=== PATIENT | female | born 1985 | race Caucasian/White ===

== ENCOUNTER → 2017-12-12 | Outpatient (CLI) | payer OTHER ==
--- NOTE | 2017-12-12 22:27 | MR ---
EXAMINATION TYPE: MR lumbar spine wo con DATE OF EXAM: 12/12/2017 COMPARISON: NONE HISTORY: 32-year-old female with low back pain with numbness x3 months TECHNIQUE: Multiplanar, multisequence images of the lumbar spine were acquired. Findings: Vertebral body heights are preserved and alignment is maintained. No suspicious bone marrow replacement. Conus medullaris is normal. There is degenerative disc disease at L5-S1 characterized by desiccated and bulging disc. Additional posterior annular fissure is present. Minimal disc bulging at L4-L5. Mild early facet degenerative change lower lumbar spine. From T12 through L4 levels, no spinal canal or foraminal stenosis. At L4-L5, minimal bulging disc and mild facet degenerative change. No significant canal or foraminal stenosis. At L5-S1, bulging disc with a small posterior annular fissure and mild facet degenerative change. No significant canal or foraminal stenosis. No prevertebral or paravertebral soft tissue abnormality seen. IMPRESSION: 1. Degenerative disc disease at L5-S1 with desiccated and bulging disc and a small posterior annular fissure. 2. Mild facet arthropathy lower lumbar spine. 3. No spinal canal or neuroforaminal stenosis.
== END | disposition home or self-care (01) ==
LOC: RADMRIMAIN 15:32
PROVIDERS: ATTEND Family Medicine
DX: M51.17 Intervertebral disc disorders with radiculopathy, lumbosacral region (principal); M46.96 Unspecified inflammatory spondylopathy, lumbar region
CPT/HCPCS: 72148

== ENCOUNTER → 2018-01-17 | Outpatient (CLI) | payer OTHER ==
[2018-01-17 15:41] LABS: Basophils % (A) 0 %; Eosinophils # (A) 0.2 k/uL (0-0.7); Eosinophils % (A) 4 %; HCT 37.1 % (34.0-46.0); HGB 12.7 gm/dL (11.4-16.0); Lymphocytes # (A) 1.8 k/uL (1.0-4.8); Lymphocytes % (A) 34 %; MCH 28.6 pg (25.0-35.0); MCHC 34.3 g/dL (31.0-37.0); MCV 83.3 fL (80.0-100.0); Mean Platelet Volume 7.1; Monocytes # (A) 0.3 k/uL (0-1.0); Monocytes % (A) 6 %; Neutrophils # (A) 2.9 k/uL (1.3-7.7); Neutrophils % (A) 55 %; Platelet Count 326 k/uL (150-450); RBC 4.45 m/uL (3.80-5.40); RDW 12.4 % (11.5-15.5); WBC 5.4 k/uL (3.8-10.6)
== END | disposition home or self-care (01) ==
LOC: LABPAT 15:21
PROVIDERS: ATTEND Obstetrics & Gynecology
DX: Z01.812 Encounter for preprocedural laboratory examination (principal)
CPT/HCPCS: 36415; 85025

== ENCOUNTER 2018-01-25 06:09 | Day surgery (SDC) | payer OTHER ==
[2018-01-22 11:49] VITALS: BMI 24.7
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
[~2018-01-25 06:09] MED LIST: DEXAMETHASONE SOD PHOSPHATE 10 MG/ML 1 ML VIAL IV ONE; LACTATED RINGERS 1,000 ML IV SCH; MIDAZOLAM 2 MG/2 ML VIAL IV PRN; MORPHINE SULFATE 4 MG/ML SYRINGE IV PRN; ONDANSETRON ODT 4 MG TAB PO ONE; Pre Op ABX Message 1 EACH MISC MISCELLANE ONE
[2018-01-25 06:24] VITALS: RESP 16
[2018-01-25] MEDS ORDERED: LIDOCAINE 1% 20 ML VIAL (10MG/ML) FOR IV START INTRADERMA ONE (06:34)
[2018-01-25] MEDS ORDERED: KETOROLAC 30 MG/ML 1 ML VIAL ONE (07:20)
[2018-01-25] MEDS ORDERED: PROPOFOL 10 MG/ML 20 ML VIAL IV ONE (07:20)
[2018-01-25] MEDS ORDERED: fentaNYL (PF) 50 MCG/ML 2 ML AMP ONE (07:20)
[2018-01-25] MEDS ORDERED: LIDOCAINE 1% INJ 10MG/ML (20 ML MDV) ONE (07:20)
[2018-01-25] MEDS ORDERED: SUCCINYLCHOLINE CHLORIDE 100 MG/5 ML SYR IV ONE (07:20)
[2018-01-25] MEDS ORDERED: MIDAZOLAM 2 MG/2 ML VIAL ONE (07:20)
[2018-01-25] MEDS ORDERED: BUPIVACAINE (PF) 0.5% 30 ML VIAL SQ ONE ×2 (07:42→07:50)
--- NOTE | 2018-01-25 08:05 | P.OP ---
Date of Procedure: 01/25/18 Preoperative Diagnosis: Multi parity desires permanent sterilization Postoperative Diagnosis: Same Procedure(s) Performed: Laparoscopic bilateral fallopian tube cauterization Anesthesia: SAMMYA Surgeon: Dex Hammond Estimated Blood Loss (ml): 10 Urine output (ml): 50 Pathology: none sent Condition: stable Disposition: PACU Indications for Procedure: Please see dictated H&P for intimate details of this patient's admission. Brief summary this pleasant 32-year-old multigravida patient is requesting tubal cauterization for permanent sterilization. Patient I discussed the fact this procedure is permanent, however does have a failure rate of approximately 5 -10 per thousand procedures done. She understands if she does become she has a 50% chance of a tubal or an ectopic . Patient also understands laparoscopic surgery has risks including risks of infection, bleeding, possible injury bowel, bladder, vessels, and/or other organs. All the patient's questions are answered and a written consent is obtained. Operative Findings: This patient had a normal-appearing pelvis. Description of Procedure: This patient is taken to the operating room where she is laid in the supine position and subsequently undergoes general endotracheal anesthesia without incident. With an adequate level of anesthesia she's placed in the dorsal lithotomy position. She has a vaginal perineal abdominal prep and drape. First go down below and placed a speculum into the vagina visualizing the cervix. Allis clamp was placed on the anterior lip of the cervix and a small acorn cannula is gently placed into the endocervix. This is attached to the Allis clamp. The bladder is then drained for 50 mL of clear urine in the catheter is left in place. I then changed gloves and go above. Make a 1 cm infraumbilical incision. Through this incision a 10 mm bladed lists optical trochars placed under direct visualization. With peritoneal placement confirmed pneumoperitoneum was then created to 12 mm of carbon dioxide gas. With this done a 5 mm incision made 2 fingerbreadths above the symphysis pubis. Through this a 5 mm bladed lists trochars placed under direct visualization. This done I then used a blunt probe to visualize uterus tubes and ovaries and all appears normal. Using bipolar cautery then grasped the left fallopian tube approximately 4 cm from its cornual insertion a 2-3 cm segment of tube is completely cauterized as demarcated by the volt meter similar technique in the right side with similar results. With this done final inspection of the abdomen and pelvis is done all appears to be hemostatic. The lower trochars removed and good hemostasis is noted. The peritoneum is reduced and the upper trochars then removed. Incisions are then closed using a 4-0 Vicryl interrupted fashion. Steri-Strips and sterile dressing applied. Half percent Marcaine is injected for postoperative pain control. I then good on below remove the Allis clamp acorn cannula and catheter. All counts are correct 3. There are no complications. Patient is awakened from anesthesia and taken recovery room satisfactory condition.
[2018-01-25 08:18] VITALS: TEMP 97.1
[2018-01-25] MEDS ORDERED: Acetaminophen-Codeine 300-30mg TAB PO ONE (08:57)
[2018-01-25 09:36] VITALS: BP 118/77; PULSE 91
== END 2018-01-25 09:57 | disposition home or self-care (01) ==
LOC: OR 06:09
PROVIDERS: ATTEND Obstetrics & Gynecology
DX: Z30.2 Encounter for sterilization (principal); Z87.891 Personal history of nicotine dependence; Z86.001 Personal history of in-situ neoplasm of cervix uteri; Z79.3 Long term (current) use of hormonal contraceptives; Z79.899 Other long term (current) drug therapy; Z88.2 Allergy status to sulfonamides
CPT/HCPCS: 81025; 58670; J2250; J1100; J2001; J3010; J1885; J0330; J2704

== ENCOUNTER → 2018-07-19 | Outpatient (CLI) | payer OTHER ==
[2018-07-18 14:10] VITALS: BMI 25.0
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
== END ==
LOC: PNWHC3 12:03
PROVIDERS: ATTEND Specialist
DX: M47.26 Other spondylosis with radiculopathy, lumbar region (principal); M46.96 Unspecified inflammatory spondylopathy, lumbar region; Z87.891 Personal history of nicotine dependence; Z79.899 Other long term (current) drug therapy; Z88.2 Allergy status to sulfonamides
CPT/HCPCS: 99211

== ENCOUNTER 2018-08-16 14:27 | Emergency (ER) | payer OTHER ==
--- NOTE | 2018-08-16 15:27 | ED ---
General Adult HPI - General Stated complaint: needle stick Time Seen by Provider: 08/16/18 15:10 Source: RN notes reviewed - History of Present Illness Initial comments: Patient's a 33-year-old female presenting to the emergency room today with a chief complaint of a needlestick injury. She does work in the OR. She states a doctor was handing a needle back to her. She went to set it down and it accidentally caught her right thumb. It did bleed. She did clean the area. Patient states her immunizations are up-to-date. She denies any other complaints or symptoms. Patient denies any recent fever, chills, shortness of breath, chest pain, numbness or tingling, headaches or visual changes, or any other complaints. - Related Data Home Medications Medication Instructions Recorded Confirmed ALPRAZolam [Xanax] 0.25 mg PO DAILY PRN 01/22/18 08/01/18 Citalopram Hydrobromide 20 mg PO HS 01/22/18 08/01/18 [Citalopram HBr] Allergies Allergy/AdvReac Type Severity Reaction Status Date / Time sulfamethoxazole Allergy Anaphylaxis Verified 07/30/18 14:55 [From Bactrim] trimethoprim [From Bactrim] Allergy Anaphylaxis Verified 07/30/18 14:55 Review of Systems ROS Statement: Those systems with pertinent positive or pertinent negative responses have been documented in the HPI. ROS Other: All systems not noted in ROS Statement are negative. Past Medical History Past Medical History: No Reported History Additional Past Medical History / Comment(s): . History of Any Multi-Drug Resistant Organisms: None Reported Past Surgical History: Tubal Ligation Additional Past Surgical History / Comment(s): LEEP Past Anesthesia/Blood Transfusion Reactions: No Reported Reaction Past Psychological History: No Psychological Hx Reported Smoking Status: Former smoker Past Alcohol Use History: Occasional Additional Past Alcohol Use History / Comment(s): quit smoking 4 yrs ago, smoked for 6 yrs, < 1 PPD Past Drug Use History: None Reported - Past Family History Mother Family Medical History: No Reported History General Exam - General Exam Comments Initial Comments: General: The patient is awake and alert, in no distress, and does not appear acutely ill. Eye: There is normal conjunctiva bilaterally. No signs of icterus. Neck: The neck is supple Musculoskeletal: Normal ROM, no tenderness. Strength 5/5. Sensation intact. Pulses equal bilaterally 2+. Neurological: A&O x 3. CN II-XII intact, There are no obvious motor or sensory deficits. Coordination appears grossly intact. Speech is normal. Skin: Small puncture at the DIP joint of the right thumb. No bleeding. No redness or erythema. Psychiatric: Cooperative, appropriate mood & affect, normal judgment. Medical Decision Making - Medical Decision Making Rapid HIV test was performed on source patient which is negative. Patient's blood was drawn here in the emergency room and she is advised follow-up with employee health. Disposition Clinical Impression: Needle stick injury Disposition: HOME SELF-CARE Condition: Good Instructions: Needle Stick Injuries (ED) Additional Instructions: Please continue to follow-up with employee health. Please return here to the emergency room symptoms increase or worsen or for any other concerns. Is patient prescribed a controlled substance at d/c from ED?: No Referrals: Jonathan Molina MD [Primary Care Provider] - 1-2 days Time of Disposition: 15:27
== END 2018-08-16 15:47 | disposition home or self-care (01) ==
LOC: EC 14:27
DX: S61.031A Puncture wound without foreign body of right thumb without damage to nail, initial encounter (principal); Z87.891 Personal history of nicotine dependence; Z88.2 Allergy status to sulfonamides; Z79.899 Other long term (current) drug therapy; W46.1XXA Contact with contaminated hypodermic needle, initial encounter; Y93.89 Activity, other specified; Y92.234 Operating room of hospital as the place of occurrence of the external cause; Y99.0 Civilian activity done for income or pay
CPT/HCPCS: 99282

== ENCOUNTER 2018-08-21 07:14 | Day surgery (SDC) | payer OTHER ==
[2018-08-17 15:35] VITALS: BMI 25.0
[~2018-08-21 07:14] MED LIST changes: -DEXAMETHASONE SOD PHOSPHATE 10 MG/ML 1 ML VIAL IV ONE; -LACTATED RINGERS 1,000 ML IV SCH; -MIDAZOLAM 2 MG/2 ML VIAL IV PRN; -MORPHINE SULFATE 4 MG/ML SYRINGE IV PRN; -ONDANSETRON ODT 4 MG TAB PO ONE; -Pre Op ABX Message 1 EACH MISC MISCELLANE ONE; +SODIUM CHLORIDE 0.9% 500 ML 500 ML IV SCH
[2018-08-21 07:35] VITALS: TEMP 97.8
[2018-08-21] MEDS ORDERED: LIDOCAINE 1% 20 ML VIAL (10MG/ML) FOR IV START INTRADERMA ONE (07:40)
[2018-08-21] MEDS ORDERED: LACTATED RINGERS 1,000 ML IV ONE (07:40)
--- NOTE | 2018-08-21 08:48 | P.PCN ---
Date of Procedure: 08/21/18 Procedure(s) Performed: PREOPERATIVE DIAGNOSIS: 1- Lumbar radiculopathy. 2-Lumbar spondylosis with Facet arthropathy without myelopathy POSTOPERATIVE DIAGNOSIS: 1-Lumber radiculopathy. 2-Lumbar spondylosis with Facet arthropathy without myelopathy PROCEDURE 1. Lumbar epidural steroid injection under fluoroscopic guidance at the L5-S1 level. 2. Lumbar epidurogram. ANESTHESIA: Local with 1% lidocaine 3 ml and , moderate sedation with intravenous Versed 2 mg ,and fentanyle 50 Mcg EBL: Minimal PROCEDURE INDICATION: The patient with low back pain and radiculitis symptoms unresponsive to conservative treatment. Fluoroscopy was used to optimize visualization of the needle placement and to maximize safety. PROCEDURE DESCRIPTION / TECHNIQUE: The patient was seen and identified in the preoperative area. Risks, benefits , complications including but not limited to infections ,bleeding ,allergic reaction to the medications ,nerve damage and not complete pain releife , and alternatives were discussed with the patient. The patient agreed to proceed with the procedure and signed the consent. IV was started, and vital signs were stable. Patient was taken to the OR and time out was completed. The patient was placed in the prone position on procedure table and a pillow was placed under the abdomen to reduce lumbar lordosis. The lumbosacral area was prepped and draped in the usual sterile fashion.ere closely monitored during the procedure. Conscious sedation was used during the procedure to decrease patients anxiety. Vital signs was monitered during the entire procedure. Using anterior-posterior fluoroscopy, the L5-S1 interlaminar space was identified and the skin over this site was marked and then infiltrated with 1% lidocaine subcutaneously. Subsequently, a 20-gauge Tuohy epidural needle was inserted and advanced toward the epidural space using the ``Loss of resistance technique and guided by AP and lateral fluoroscopy. The correct needle position in the epidural space was verified with the injection of 2 mL of the water soluble contrast dye Isovue 200 contrast and observing an excellent epidurogram with the epidural spread of the dye, after negative aspiration for blood and CSF and in the absence of paresthesias. Again after negative aspiration, a 6 ml mixture containing 80 mg of Depo-medrol , and 2 ml of preservative free Normal Saline, and 2 ml of preservative free lidocaine 1% solution was injected and a washout of epidurogram was seen. Needle was withdrawn intact, skin was cleansed, and bandages were applied. COMPLICATIONS: None DISPOSITION / PLANS: The patient was placed in a supine position and transferred to the recovery area in a stable condition for observation. There was no evidence of lower extremity motor or sensory deficit after the procedure. Patient was discharged from the recovery room after meeting discharge criteria. Home discharge instructions were given to the patient by the staff. The patient was reexamined prior to discharge. The patient will schedule a follow up in the clinic in 2-4 weeks.
[2018-08-21] MEDS ORDERED: IV FLUID CONTINUATION 725 ML IV ONE (08:55)
--- NOTE | 2018-08-21 09:23 | FL ---
Fluoroscopy HISTORY: Pain 2 seconds fluoroscopy time supplied to the referring clinician. 1 intraoperative C-arm images docume nt the procedure. See dictated report from anesthesia.
[2018-08-21 09:28] VITALS: BP 104/67; PULSE 69; RESP 18
== END 2018-08-21 09:27 | disposition home or self-care (01) ==
LOC: ORPAIN 07:14
PROVIDERS: ATTEND Specialist
DX: M47.26 Other spondylosis with radiculopathy, lumbar region (principal); Z88.1 Allergy status to other antibiotic agents; Z88.2 Allergy status to sulfonamides
CPT/HCPCS: 81025; 62323; J2250; J1030; J3010; Q9966

== ENCOUNTER → 2018-10-03 | Outpatient (CLI) | payer OTHER ==
[2018-10-03 11:19] VITALS: BP 108/64; PULSE 81; RESP 16
--- NOTE | 2018-10-03 14:00 | P.PN ---
Progress Note - Text Progress Note Date: 10/03/18 33-year-old female who presents for follow-up visit with a chief complaint of low back pain. She had 2 epidural steroid injections that have not provided her with any significant relief of her symptoms. Her back pain is intermittent and worse with excessive activity. Currently it is a 4 out of 10 in severity, scribed as a throbbing aching pain that radiates into her posterior and anterior thighs just above the knee. It is worse with activity such as flexion and lifting, and better with rest. Again, her main complaint is his low back pain significant strenuous activity, and standing for long periods at work. Overall, she states that her pain interferes with caring for her children, and work. She does not take any medication at the moment. In addition to above, 13-point review of systems is also negative for chest pain , shortness of breath, changes in vision, changes in hearing, new onset weakness , abdominal pain, diarrhea, extreme fatigue, malaise, fever, skin changes, homicidal or suicidal ideation, or bowel or bladder incontinence. Vital Signs: Reviewed in EMR Gen: WDWN, AAOx3, NAD HEENT: NCAT, EOMI, hearing grossly normal Pulm: resp unlabored Abd: soft, NT, ND Neck: supple, trachea midline ROM in flexion lumbar spine: Mild pain with flexion lumbar spine ROM in extension lumbar spine: Benign Lumbar paravertebral tenderness: Mild tenderness to palpation Facet loading: + + L>R SI joint tenderness: Negative bilateral Johnosn's test: Bilateral Straight leg raise: Negative bilateral Lower extremity: Within normal limits Neuro: Sensory motor strength preserved in upper and lower extremities Assessment: 1. Lumbar spondylosis without myelopathy 2. Lumbar herniated disc 3. Lumbar degenerative disc disease at L5-S1 Plan: 1. Medication: None prescribed 2. Investigation: MRI lumbar spine reviewed with patient in detail. 3. Intervention: Discussed with patient facet joint injections at the L4-L5, L5 -S1 articular spaces the risks and benefits of the procedure were discussed as well as diagnostic modality for her low back axial pain. 4. Disposition: After discussing the risks and benefits, we will proceed with facet joint injections. I'm more concerned that this is axial low back pain not caused by her bulging disc at L5-S1. Patient return for scheduled procedure. PQRS measures: 1-Patient's medications are documented in the chart. 2-Tobacco use is positive/negative, counseling given 3-Patient has not had a pneumococcal vaccine. 4-Advanced care planning discussed, patient unable to give. 5-Opioid contract was not signed with the patient. 6-Pain positive, follow-up visit or procedure scheduled 7-Patient's blood pressure measured and documented, and patient will follow up with the primary care due to hypertension. 8-Patient's weight was measured, and body mass index above the normal limits, and counseling was done. Patient instructed to follow up with PCP. 9-Patient was not identified as an unhealthy alcohol user.
== END ==
LOC: PNWHC3 10:56
PROVIDERS: ATTEND Anesthesiology
DX: M51.26 Other intervertebral disc displacement, lumbar region (principal); M51.37 Other intervertebral disc degeneration, lumbosacral region; M47.816 Spondylosis without myelopathy or radiculopathy, lumbar region
CPT/HCPCS: 99211

== ENCOUNTER 2018-10-23 07:00 | Day surgery (SDC) | payer OTHER ==
[2018-10-22 08:16] VITALS: BMI 24.2
[2018-10-23 07:18] VITALS: RESP 16; TEMP 97.6
[2018-10-23] MEDS ORDERED: LACTATED RINGERS 1,000 ML IV ONE (07:22)
[2018-10-23] MEDS ORDERED: LIDOCAINE 1% 20 ML VIAL (10MG/ML) FOR IV START INTRADERMA ONE (07:23)
--- NOTE | 2018-10-23 08:16 | P.PCN ---
Date of Procedure: 10/23/18 Procedure(s) Performed: PREOPERATIVE DIAGNOSIS : 1- Lumbar spondylosis with Facet Arthropathy without myelopathy . 2- Lumber degenerative disc disease POSTOPERATIVE DIAGNOSIS: 1- Lumbar spondylosis with Facet Arthropathy without myelopathy . 2- Lumber degenerative disc disease PROCEDURE: Diagnostic bilateral L3 -4 , L4 -5 , and L5-S1 medial branch block under fluoroscopy ANESTHESIA: Local with Ropivacain 0.5 % , moderate sedation with intravenous Versed 2 mg and Fentanyl 100 mcg. EBL: Minimal COMPLICATION: None. IV FLUIDS: 100 mL of normal saline. PROCEDURE INDICATION: Chronic low back pain secondary to Facet arthropathy unresponsive to conservative treatment. PROCEDURE DESCRIPTION: the patient was seen and identified in the preop holding area , risks and benefits and possible complications of the procedure and alternative were discussed with the patient, and the patient agreed to proceed with the procedure and signed the consent IV was started and vital signs monitored during the procedure and fluoroscopy was used to maximize the benefit and accuracy of the needle placement, and sedation was given to decrease patient anxiety, patient was taken to the procedure room and placed in prone position vital signs monitored in the back prepped with chlorhexidine X3 then under strict sterile technique using a right oblique fluoroscopy ,the junction of the transverse process and the superior articulating process of the right L3- 4 , L4- 5, and L5-S1 vertebra which corresponding to the fluoroscopy image of the eye of the Brice dog on the block side for the medial branches and subsequently , after local infiltration of skin and subcu tissuies with Ropivacaine 0.5 % , one mL at each level , then 22-gauge Quincke-type needles , 3 needle was used , each one of them placed at the junction of the base of the transverse process and the superior articular process at the appropriate level, and the needle was advanced until the periosteum contacted, needle placement confirmed with AP oblique and lateral view and after appropriate needle placement confirmed, and after negative aspiration for heme and CSF and there was no paresthesia 1-1/2 mL of Ropivacaine 0.5% mixed with 20 mg Depo-medrol , then half mL injected at each level after negative aspiration the needle subsequently removed and the same procedure repeated for the left side at left side at L3-4, L4- 5 and L5-S1 levels. At the end of the procedure and the needles removed and a bandage applied after the skin was cleaned the cleaning solution patient taken to recovery room in stable condition and monitors in the recovery room for 20-30 minutes and discharged home in stable condition after discharge criteria met and patient will follow up with the pain clinic in 2-4 weeks
[2018-10-23] MEDS ORDERED: IV FLUID CONTINUATION 700 ML IV ONE (08:24)
[2018-10-23 08:42] VITALS: BP 97/63; PULSE 69
--- NOTE | 2018-10-23 13:50 | FL ---
Fluoroscopy INDICATION: Pain FINDINGS: Fluoroscopy time: 12 seconds. Images obtained: 4. IMPRESSIONS: 1. Documentation of fluoroscopy.
== END 2018-10-23 09:06 | disposition home or self-care (01) ==
LOC: ORPAIN 07:00
PROVIDERS: ATTEND Specialist
DX: M47.26 Other spondylosis with radiculopathy, lumbar region (principal); M51.16 Intervertebral disc disorders with radiculopathy, lumbar region; G89.29 Other chronic pain; Z88.2 Allergy status to sulfonamides
CPT/HCPCS: 81025; 64493; 64494; 64495; J2250; J1030; J3010; 99152

== ENCOUNTER 2018-11-21 06:43 | Day surgery (SDC) | payer OTHER ==
[2018-11-20 08:18] VITALS: BMI 23.7
[2018-11-21] MEDS ORDERED: SODIUM CHLORIDE 0.9% 500 ML 500 ML IV SCH (06:45)
[2018-11-21 07:14] VITALS: RESP 16; TEMP 96.8
[2018-11-21] MEDS ORDERED: IV FLUID CONTINUATION 1,000 ML IV ONE ×3 (07:15→08:25)
--- NOTE | 2018-11-21 08:19 | P.PCN ---
Date of Procedure: 11/21/18 Procedure(s) Performed: PREOPERATIVE DIAGNOSIS : 1- Lumbar spondylosis with Facet Arthropathy without myelopathy . 2- Lumber degenerative disc disease POSTOPERATIVE DIAGNOSIS: 1- Lumbar spondylosis with Facet Arthropathy without myelopathy . 2- Lumber degenerative disc disease PROCEDURE: Diagnostic bilateral L3 -4 , L4 -5 , and L5-S1 medial branch block under fluoroscopy #2nd ANESTHESIA: Local with Ropivacain 0.5 % , moderate sedation with intravenous Versed 2 mg and Fentanyl 100 mcg. EBL: Minimal COMPLICATION: None. IV FLUIDS: 100 mL of normal saline. PROCEDURE INDICATION: Chronic low back pain secondary to Facet arthropathy unresponsive to conservative treatment. PROCEDURE DESCRIPTION: the patient was seen and identified in the preop holding area , risks and benefits and possible complications of the procedure and alternative were discussed with the patient, and the patient agreed to proceed with the procedure and signed the consent IV was started and vital signs monitored during the procedure and fluoroscopy was used to maximize the benefit and accuracy of the needle placement, and sedation was given to decrease patient anxiety, patient was taken to the procedure room and placed in prone position vital signs monitored in the back prepped with chlorhexidine X3 then under strict sterile technique using a right oblique fluoroscopy ,the junction of the transverse process and the superior articulating process of the right L3- 4 , L4- 5, and L5-S1 vertebra which corresponding to the fluoroscopy image of the eye of the Brice dog on the block side for the medial branches and subsequently , after local infiltration of skin and subcu tissuies with Ropivacaine 0.5 % , one mL at each level , then 22-gauge Quincke-type needles , 3 needle was used , each one of them placed at the junction of the base of the transverse process and the superior articular process at the appropriate level, and the needle was advanced until the periosteum contacted, needle placement confirmed with AP oblique and lateral view and after appropriate needle placement confirmed, and after negative aspiration for heme and CSF and there was no paresthesia 1-1/2 mL of Ropivacaine 0.5% mixed with 20 mg Depo-medrol , then half mL injected at each level after negative aspiration the needle subsequently removed and the same procedure repeated for the left side at left side at L3-4, L4- 5 and L5-S1 levels. At the end of the procedure and the needles removed and a bandage applied after the skin was cleaned the cleaning solution patient taken to recovery room in stable condition and monitors in the recovery room for 20-30 minutes and discharged home in stable condition after discharge criteria met and patient will follow up with the pain clinic in 2-4 weeks
--- NOTE | 2018-11-21 08:31 | FL ---
EXAMINATION TYPE: FL guided pain mgmt statistic DATE OF EXAM: 11/21/2018 CLINICAL HISTORY: Low back pain. TECHNIQUE: Fluoroscopy. COMPARISON: None. FINDINGS: Fluoroscopic guidance was provided during pain relief procedure performed by Dr. Vu . A total of 4 seconds of fluoroscopic time was utilized during the procedure and for spot images ar e acquired. Images acquired shows needle localization at multiple levels bilaterally off the midline in the lower lumbar spine. IMPRESSION: As Above.
[2018-11-21 08:44] VITALS: BP 111/64; PULSE 72
== END 2018-11-21 09:10 | disposition home or self-care (01) ==
LOC: ORPAIN 06:43
PROVIDERS: ATTEND Specialist
DX: G89.29 Other chronic pain (principal); M47.816 Spondylosis without myelopathy or radiculopathy, lumbar region; M51.36 Other intervertebral disc degeneration, lumbar region; Z88.1 Allergy status to other antibiotic agents; Z88.2 Allergy status to sulfonamides
CPT/HCPCS: 81025; 64493; 64494; 64495; J2250; J1030; J3010; 99152

== ENCOUNTER → 2018-12-24 | Outpatient (CLI) | payer OTHER ==
[2018-12-24 14:26] VITALS: BP 119/72; PULSE 80; RESP 16
--- NOTE | 2018-12-24 15:20 | P.PAINPG ---
Subjective Progress Note Date: 12/24/18 This is a 33 years old female with a chronic history of severe low back pain with radiation to the lower extremity, she is diagnosed with lumbar degenerative disc disease and lumbar spondylosis with lumbar facet arthropathy, with done lumbar epidural steroid injections 2 she has 0 benefit from, and recently we did diagnostic medial branch block lumbar area L3 to S1, she reported that her pain level before the first diagnostic block was 8/10 decreased to 0/10 after the first block, and the pain relief lasted for a few days, and patient reported that before the second diagnostic block her pain level was 8/10 decreased to 2- 3/10 after the second block, and she continued to have minimal to no pain levels since the second diagnostic block ,she denies any fever or night sweats which denies any change in the bowel movement or urination. Physical Examinations : -Constitutional : Cooperative , not in acute distress . -HEENT : nech ; supple , no Lymphadenopathy , no Thyromegaly , :eyes , no icterus, no photophobia . -Integumentary : No cellulitis , no ulcers , normal skin turgor , no cyanotic . - neurologic : Cranial nerve II to XII intact , no focal neurological deffecit -psychatric : alert , oriented X 3 , appropriate affect , intact judgment and insight . -Lymphatic : no Lymphadenopathy. - musculoskeltal: normal gait Lumber spine moter stegnth lower extremities ,thigh and legs 5/5 Right side , 5/5 Left side Diagnostic study MRI of the lumbar spine done at [facility] 12/12/2017= L4 5 minimal bulging disc and mild facet degeneration, L5-S1 bulging disc and mild facet degeneration Assessment and Plan Plan: Assessment and plan= 1-lumbar radiculopathy. 2-lumbar spondylosis with lumbar facet arthropathy without myelopathy Patient had positive results after the diagnostic medial branch block lumbar area, currently having minimal to no pain Patient will be good candidate for RFA of the medial branch lumbar area when needed ( L3-4 /L4-5 /L5-S1 ) She could benefit from Motrin 600 mg when necessary every 8 hours Objective - Vital Signs Vital signs: Vital Signs Temp Pulse 80 12/24/18 14:16 Resp 16 12/24/18 14:16 BP 119/72 12/24/18 14:16 Pulse Ox Intake & Output 12/23/18 12/24/18 12/24/18 18:59 06:59 18:59 Weight 65.771 kg PQRS Measure Charge Sheet Measure #130: Documentation of Current Meds in Medical Chart: Patient's medications documented in chart Measure #226: Tobacco Use: Screen & Cessation Intervention: Pt not a tobacco user Measure #111: Pneumonia Vaccination: Pneumococcal vaccine NOT administered or previously given Measure #47: Advance Care Plan: Advance care planning discussed & documented, pt chose/unable to give Measure #412: Opioid Treatment Agreement: No documentation of signed opioid treatment agreement Measure #408: Opioid Therapy Follow-up Evaluation: Patient had NO f/u eval minimum every 3 months during opioid therapy Measure #317: Preventitive Care & Scrn High Bld Press & F/U: Normal blood pressure, f/u not required Measure #128: Body Mass Index (BMI) Screening & Follow-up: BMI documented within normal parameters Measure #131: Pain Assessment & Follow-up: Pain positive & plan documented, Follow-up scheduled, Follow-up PRN Measure #431: Unhealthy Alcohol Use Preventative Care & Scrn: Patient not identified as an unhealthy alcohol user PQRS Narrative: Smoking Status Former smoker Do You Want the Pneumonia No Vaccine AT THIS TIME? Blood Pressure 119/72 Pain Intensity [None] 0 Scale Used Numeric (1 - 10) Hx Alcohol Use (MH) Yes Home Medications: Ambulatory Orders ALPRAZolam [Xanax] 0.25 mg PO DAILY PRN 01/22/18 Citalopram Hydrobromide [Citalopram HBr] 20 mg PO HS 01/22/18 Phentermine HCl 37.5 mg PO AC-BRKFST 10/22/18 Ibuprofen [Motrin] 600 mg PO Q8HR PRN 12/24/18 Controlled Substance Measures - Controlled Substance Measures Is patient prescribed a controlled substance at discharge?: No
== END ==
LOC: PNWHC3 13:18
PROVIDERS: ATTEND Specialist
DX: M47.26 Other spondylosis with radiculopathy, lumbar region (principal); M46.96 Unspecified inflammatory spondylopathy, lumbar region; Z87.891 Personal history of nicotine dependence; Z79.899 Other long term (current) drug therapy; Z79.1 Long term (current) use of non-steroidal anti-inflammatories (NSAID)
CPT/HCPCS: 99211

== ENCOUNTER 2019-03-07 06:55 | Day surgery (SDC) | payer OTHER ==
[2019-03-04 13:22] VITALS: BMI 23.7
[2019-03-07] MEDS: LACTATED RINGERS 1,000 ML IV SCH ×2 (07:17→07:59)
[2019-03-07 07:18] VITALS: TEMP 98
--- NOTE | 2019-03-07 08:24 | P.PCN ---
Date of Procedure: 03/07/19 Procedure(s) Performed: PREOPERATIVE DIAGNOSIS: 1-Lumbar Spondylosis with Facet Arthropathy without myelopathy. 2- Lumber degenerative disc disease POSTOPERATIVE DIAGNOSIS: 1- Lumbar Spondylosis with Facet Arthropathy without myelopathy. 2- Lumber degenerative disc disease PROCEDURES : Right Radiofrequency thermocoagulation, L3-L4, L4-L5, and L5-S1 medial branch, with fluoroscopic guidance ANESTHESIA: Moderate sedation with intravenous versed 2 mg and fentaneyl 100 mcg, and local infiltration with Ropivacaine 0.5 % . EBL: Minimal PROCEDURE INDICATION: The patient with low back pain secondary to lumbar facet arthropathy who had more than 50% relief of her pain with previous diagnostic lumbar medial branch block with bupivacaine. PROCEDURE DESCRIPTION / TECHNIQUE: The patient was seen and identified in the preoperative area. Risks, benefits, complications, including but not limited to risk of infection ,bleeding , allergic reactions to the medications and no complete pain releife , and alternatives were discussed with the patient, the patient agreed to proceed with the procedure and signed the consent. IV was started. Vital signs remained stable throughout the procedure. Patient was taken to the OR and time out was completed. The patient was placed in the prone position on the procedure table. The lumber area was prepped and draped in the usual sterile fashion. . Vital signs were closely monitored during the procedure .IV sedation was used during the procedure to decrease patients anxiety. Using AP and then oblique fluoroscopy, the ``eye of the Brice dog corresponding to the connection between the superior and transverse articular processes of right L3, L4, and L5 were identified, marked, and localized with 1% lidocaine. Subsequently, a 18 -ko radiofrequency cannula with a 10- mm active tip was advanced guided by fluoroscopy to each of the``eyes of the Brice dog at right L3, L4, and L5. Each site then underwent sensory testing at 50 Hz and 0 to 1 volt and motor testing at 2.5 Hz and 0 to 3 volt with local stimulation, but no radicular symptoms down the legs. Thereafter the right L3-4, L4-5, and L5-S1 sites underwent radiofrequency thermocoagulation at 80 degrees celsius for 90 seconds after injecting 0.5 ml of PF Ropivacaine 1ml, then after the thermocoagulation done , 1 ml of the block solution containing Depo-Medrol 40 mg and 3 ml of Ropivacaine 0.5% was injected at the right L3-4 , L4-5 , and L5-S1, levels after negative aspiration of CSF and blood and with no paresthesias. Cannulas were retracted while injecting lidocaine 1% until the needle is out. . At the end of the procedure, the skin was cleansed and bandages were applied. COMPLICATIONS: No acute complications. DISPOSITION / PLANS: The patient was placed in a supine position and transferred to the recovery area in a stable condition for observation and was discharged from the recovery room after meeting discharge criteria. Home discharge instructions given to the patient by the staff. The patient was reexamined prior to discharge. The patient will schedule a follow up in the clinic in 2-4 weeks.
[2019-03-07 08:34] VITALS: RESP 18
--- NOTE | 2019-03-07 08:38 | FL ---
EXAMINATION TYPE: FL guided pain mgmt statistic DATE OF EXAM: 03/07/2019 FLUOROSCOPY Fluoroscopy time of 11 seconds was used during right lumbar radiofrequency elation. 3 image/s docume nt/s the procedure.
[2019-03-07 08:52] VITALS: BP 105/78; PULSE 78
== END 2019-03-07 09:02 | disposition home or self-care (01) ==
LOC: ORPAIN 06:55
PROVIDERS: ATTEND Specialist
DX: M51.36 Other intervertebral disc degeneration, lumbar region (principal); M47.816 Spondylosis without myelopathy or radiculopathy, lumbar region; Z88.2 Allergy status to sulfonamides
CPT/HCPCS: 81025; 64635; 64636 ×2; J2250; J1030; J3010; 99152

== ENCOUNTER 2019-03-27 06:55 | Day surgery (SDC) | payer OTHER ==
[2019-03-27 07:13] VITALS: TEMP 97.6
[2019-03-27] MEDS ORDERED: LACTATED RINGERS 1,000 ML IV SCH (07:15)
[2019-03-27] MEDS ORDERED: LIDOCAINE 1% 20 ML VIAL (10MG/ML) FOR IV START INTRADERMA ONE (07:18)
[2019-03-27] MEDS ORDERED: IV FLUID CONTINUATION 500 ML IV ONE (08:42)
--- NOTE | 2019-03-27 08:43 | P.PCN ---
Date of Procedure: 03/27/19 Procedure(s) Performed: PREOPERATIVE DIAGNOSIS: 1-Lumbar Spondylosis with Facet Arthropathy without myelopathy. 2- Lumber degenerative disc disease POSTOPERATIVE DIAGNOSIS: 1- Lumbar Spondylosis with Facet Arthropathy without myelopathy. 2- Lumber degenerative disc disease PROCEDURES : Left Radiofrequency thermocoagulation, L3-L4, L4-L5, and L5-S1 medial branch, with fluoroscopic guidance ANESTHESIA: Moderate sedation with intravenous versed 2 mg and fentanyl 100 mcg, and local infiltration with Lidocaine 4 % . EBL: Minimal PROCEDURE INDICATION: The patient with low back pain secondary to lumbar facet arthropathy who had more than 50% relief of her pain with previous diagnostic lumbar medial branch block with bupivacaine. PROCEDURE DESCRIPTION / TECHNIQUE: The patient was seen and identified in the preoperative area. Risks, benefits, complications, including but not limited to risk of infection ,bleeding , allergic reactions to the medications and incomplete pain relief , and alternatives were discussed with the patient, the patient agreed to proceed with the procedure and signed the consent. IV was started. Vital signs remained stable throughout the procedure. Patient was taken to the OR and time out was completed. The patient was placed in the prone position on the procedure table. The lumbar area was prepped and draped in the usual sterile fashion. . Vital signs were closely monitored during the procedure .IV sedation was used during the procedure to decrease patients anxiety. Using AP and then oblique fluoroscopy, the ``eye of the Brice dog corresponding to the connection between the superior and transverse articular processes of left L3, L4, and L5 as well as sacral ala were identified, marked, and localized with 1% lidocaine. Subsequently, a 18 [id number] radiofrequency cannula with a 10-mm active tip was advanced guided by fluoroscopy to each of the``eyes of the Brice dog at left L3, L4, and L5 as well as sacral ala. Each site then underwent motor testing at 2.5 Hz with local stimulation, with no radicular symptoms down the legs. Thereafter the left L3- 4, L4-5, and L5-S1 as well as sacral ala sites underwent radiofrequency thermocoagulation at 80 degrees celsius for 90 seconds after injecting 1 ml of PF lidocaine 4%. Cannulas were retracted . At the end of the procedure, the skin was cleansed and bandages were applied. COMPLICATIONS: No acute complications. DISPOSITION / PLANS: The patient was placed in a supine position and transferred to the recovery area in a stable condition for observation and was discharged from the recovery room after meeting discharge criteria. Home discharge instructions given to the patient by the staff. The patient will schedule a follow up in the clinic in 2-4 weeks.
--- NOTE | 2019-03-27 08:47 | FL ---
EXAMINATION TYPE: FL guided pain mgmt statistic DATE OF EXAM: 03/27/2019 CLINICAL HISTORY: Low back pain. TECHNIQUE: Fluoroscopy. COMPARISON: None. FINDINGS: Fluoroscopic guidance was provided during pain relief procedure performed by Dr. Augustine. A t otal of 19 seconds of fluoroscopic time was utilized during the procedure and 8 spot images are acqui red. Images acquired shows needle localization at multiple levels of the lumbar spine. IMPRESSION: As Above.
[2019-03-27] MEDS ORDERED: KETOROLAC 30 MG/ML 1 ML VIAL IVP STA (08:55)
[2019-03-27 09:03] VITALS: BP 110/73; PULSE 63; RESP 18
== END 2019-03-27 09:42 | disposition home or self-care (01) ==
LOC: ORPAIN 06:55
PROVIDERS: ATTEND Anesthesiology
DX: M47.816 Spondylosis without myelopathy or radiculopathy, lumbar region (principal); M51.36 Other intervertebral disc degeneration, lumbar region
CPT/HCPCS: 64635; 64636; 81025; 99152

== ENCOUNTER → 2019-04-25 | Outpatient (CLI) | payer OTHER ==
[2019-04-25 14:25] VITALS: BP 115/74; PULSE 108; RESP 16
--- NOTE | 2019-04-25 14:49 | P.PN ---
Subjective Progress Note Date: 04/25/19 This is follow visit for for this 33 years old female with a chronic history of severe low back pain with radiation to the lower extremity, she is diagnosed with lumbar degenerative disc disease and lumbar spondylosis with lumbar facet arthropathy, recently we have done radiofrequency ablation of the medial branch lumbar area and she got excellent pain relief ,she denies any fever or night sweats which denies any change in the bowel movement or urination. Physical Examinations : -Constitutional : Cooperative , not in acute distress . -HEENT : nech ; supple , no Lymphadenopathy , no Thyromegaly , :eyes , no icterus, no photophobia . -Integumentary : No cellulitis , no ulcers , normal skin turgor , no cyanotic . - neurologic : Cranial nerve II to XII intact , no focal neurological deffecit -psychatric : alert , oriented X 3 , appropriate affect , intact judgment and insight . -Lymphatic : no Lymphadenopathy. - musculoskeltal: normal gait Lumber spine moter stegnth lower extremities ,thigh and legs 5/5 Right side , 5/5 Left maury Assessment and plan= 1-lumbar radiculopathy. 2-lumbar spondylosis with lumbar facet arthropathy without myelopathy Pain improved significantly after the radiofrequency ablation of the medial branch lumbar area She will follow up with the pain clinic when necessary PQRS Measure Charge Sheet Measure #130: Documentation of Current Meds in Medical Chart: Patient's medications documented in chart Measure #226: Tobacco Use: Screen & Cessation Intervention: Pt not a tobacco user Measure #111: Pneumonia Vaccination: Pneumococcal vaccine NOT administered or previously given Measure #47: Advance Care Plan: Advance care planning discussed & documented, pt chose/unable to give Measure #412: Opioid Treatment Agreement: No documentation of signed opioid treatment agreement Measure #408: Opioid Therapy Follow-up Evaluation: Patient had NO f/u eval minimum every 3 months during opioid therapy Measure #317: Preventitive Care & Scrn High Bld Press & F/U: Normal blood pressure, f/u not required Measure #128: Body Mass Index (BMI) Screening & Follow-up: BMI documented within normal parameters Measure #131: Pain Assessment & Follow-up: Pain positive & plan documented, Follow-up scheduled, Follow-up PRN Measure #431: Unhealthy Alcohol Use Preventative Care & Scrn: Patient not identified as an unhealthy alcohol user PQRS Narrative: - Controlled Substance Measures Is patient prescribed a controlled substance at discharge?: No Additional CC's: Jonathan Molina Objective - Vital Signs Vital signs: Intake & Output 04/24/19 04/25/19 04/25/19 18:59 06:59 18:59 Weight 65.771 kg
== END | disposition home or self-care (01) ==
LOC: PNWHC3 13:44
PROVIDERS: ATTEND Specialist
DX: M47.26 Other spondylosis with radiculopathy, lumbar region (principal); M46.96 Unspecified inflammatory spondylopathy, lumbar region
CPT/HCPCS: 99211

== ENCOUNTER → 2020-05-13 | Outpatient (CLI) | payer OTHER ==
[2020-05-13 10:41] VITALS: BP 117/66; PULSE 79; RESP 14; TEMP 98.1
--- NOTE | 2020-05-13 12:07 | P.PAINPG ---
Subjective Progress Note Date: 05/13/20 This is a 34 years old female with a chronic history of severe low back pain with radiation to the lower extremity, she is diagnosed with lumbar degenerative disc disease ,and lumbar spondylosis with lumbar facet arthropathy, previously we have done RFA medial branch lumbar area L3 to L5 , she gets excellent relief for more than one year, currently she is complaining of severe low back pain localized in the low back she denies any motor or sensory deficit, and increases with any activity ,she denies any fever or night sweats which denies any change in the bowel movement or urination. Objective - Vital Signs Vital signs: Vital Signs Temp 98.1 F 05/13/20 10:32 Pulse 79 05/13/20 10:32 Resp 14 05/13/20 10:32 BP 117/66 05/13/20 10:32 Pulse Ox 99 05/13/20 10:32 Intake & Output 05/12/20 05/13/20 05/13/20 18:59 06:59 18:59 Weight 65.771 kg - Exam Physical Examinations : -Constitutiona : Cooperative , not in acute distress . -HEENT : nech : supple , no Lymphadenopathy , normal thyroid size . : eyes : no ptosis , no icterus, no photophobia . - neurologic : Cranial nerve II to XII intact , no focal neurological deffecit . -psychatric : alert , oriented X 3 , appropriate affect , intact judgment and insight . -Lymphatic : no Lymphadenopathy . - musculoskeltal : Lumber spine moter stegnth lower extremities ,thigh and legs 5/5 Right side , 5/5 Left side deep tendon reflexes : normal Knee Jerk , normal ankle Jerk lumber facet Loading Test =positive Right , positive Left Range of motion of the lumbar spine Flexion 30 degrees, extension 10 degrees strait leg raising test = negative bilaterally Fabere test= negative bilaterally. Assessment and Plan Plan: Assessment and plan= 1-lumbar spondylosis with lumbar facet arthropathy without myelopathy. 2-lumbar degenerative disc disease. Patient had good result after the RFA of the medial branch lumbar area, she had excellent pain relief lasted more than a year, and patient would be good candidate to have a repeat RFA of the medial branch lumbar area and is L3 ,L4 ,L5 , ( 2 target the facet joint at L4-5 and L5-S1 bilaterally ) Time with Patient: Less than 30 PQRS Measure Charge Sheet Measure #130: Documentation of Current Meds in Medical Chart: Patient's medications documented in chart Measure #226: Tobacco Use: Screen & Cessation Intervention: Pt not a tobacco user Measure #111: Pneumonia Vaccination: Pneumococcal vaccine NOT administered or previously given Measure #47: Advance Care Plan: Advance care planning discussed & documented, pt chose/unable to give Measure #412: Opioid Treatment Agreement: No documentation of signed opioid treatment agreement Measure #408: Opioid Therapy Follow-up Evaluation: Patient had NO f/u eval minimum every 3 months during opioid therapy Measure #317: Preventitive Care & Scrn High Bld Press & F/U: Normal blood pressure, f/u not required Measure #128: Body Mass Index (BMI) Screening & Follow-up: BMI documented ABOVE normal parameters - f/u documented Measure #131: Pain Assessment & Follow-up: Pain positive & plan documented, Follow-up scheduled Measure #431: Unhealthy Alcohol Use Preventative Care & Scrn: Patient not identified as an unhealthy alcohol user PQRS Narrative: Smoking Status Former smoker Blood Pressure 117/66 Pain Intensity [Lower Back] 5 Scale Used Numeric (1 - 10) Hx Alcohol Use (MH) Yes Home Medications: Ambulatory Orders ALPRAZolam [Xanax] 0.25 mg PO DAILY PRN 01/22/18 Citalopram Hydrobromide [Citalopram HBr] 20 mg PO HS 01/22/18 Ibuprofen [Motrin] 600 mg PO Q8HR PRN 12/24/18 Controlled Substance Measures - Controlled Substance Measures Is patient prescribed a controlled substance at discharge?: No
== END | disposition home or self-care (01) ==
LOC: PNWHC3 10:09
PROVIDERS: ATTEND Specialist
DX: M51.36 Other intervertebral disc degeneration, lumbar region (principal); M47.816 Spondylosis without myelopathy or radiculopathy, lumbar region; M46.96 Unspecified inflammatory spondylopathy, lumbar region; Z87.891 Personal history of nicotine dependence; Z79.891 Long term (current) use of opiate analgesic; Z79.899 Other long term (current) drug therapy
CPT/HCPCS: 99211

== ENCOUNTER 2020-06-04 06:34 | Day surgery (SDC) | payer OTHER ==
[~2020-06-04 06:34] MED LIST changes: +LACTATED RINGERS 1,000 ML IV SCH; -SODIUM CHLORIDE 0.9% 500 ML 500 ML IV SCH
[2020-06-04 06:54] VITALS: TEMP 98.6
[2020-06-04] MEDS ORDERED: LIDOCAINE 1% (10MG/ML) FOR IV START INTRADERMA ONE (07:02)
[2020-06-04] MEDS ORDERED: TRIAMCINOLONE ACETONIDE 40 MG/ML 1 ML VIAL ONE (07:15)
[2020-06-04] MEDS ORDERED: MIDAZOLAM 2 MG/2 ML VIAL ONE (07:15)
[2020-06-04] MEDS ORDERED: fentaNYL (PF) 50 MCG/ML 2 ML AMP ONE (07:15)
[2020-06-04] MEDS ORDERED: ROPIVACAINE 5MG/ML 20ML VIAL ONE (07:15)
--- NOTE | 2020-06-04 07:48 | P.PCN ---
Date of Procedure: 06/04/20 Surgeon: Raina Cunha Pathology: none sent Condition: stable Disposition: PACU Description of Procedure: PREOPERATIVE DIAGNOSIS: Lumbar spondylosis without myelopathy, morbid obesity POSTOPERATIVE DIAGNOSIS: Lumbar spondylosis without myelopathy,morbid obesity PROCEDURES : Bilateral Radiofrequency thermocoagulation L4-L5, and L5-S1 medial branch, with fluoroscopic guidance ANESTHESIA: IV moderate conscious sedation with versed and fentanyl and local infiltration with lidocaine 1% 5 ml Physician:Raina Cunha MD EBL: Minimal PROCEDURE INDICATION: The patient with low back pain secondary to lumbar facet arthropathy who had more than 50% relief of her pain with previous diagnostic lumbar medial branch block with bupivacaine. PROCEDURE DESCRIPTION / TECHNIQUE: The patient was seen and identified in the preoperative area. Risks, benefits, complications, including but not limited to risk of infection ,bleeding , allergic reactions to the medications and no complete pain relief , and alternatives were discussed with the patient, the patient agreed to proceed with the procedure and signed the consent. IV was started. Vital signs remained stable throughout the procedure. Patient was taken to the OR and time out was completed. The patient was placed in the prone position on the procedure table. The lumber area was prepped and draped in the usual sterile fashion. . Vital signs were closely monitored during the procedure .IV sedation was used during the procedure to decrease patients anxiety. The target points were identified as follows: For the L5-S1 level which correspo nds to the dorsal ramus of L5 the target point was at the superior medial aspect of the sacral ala on the Rt side of the spine on the AP view of fluoroscopy and for the L3, and L4 medial branches the target points were at the connection between the transverse process and the superior articular process of L4, and L5 vertebra respectively on the Rt oblique view of fluoroscopy. skin was marked, and localized with 1% lidocaineat these points. Subsequently, an 18 - mm radiofrequency needles with a 10-mm curved active tips were advanced guided by fluoroscopy to each of the target points mentioned above in a superior medial direction to get the active tips as parallel as possible to the medial branches tracks. AP, oblique, and lateral views of fluoroscopy were used to verify needle tips position. Each level then underwent motor testing at 2.5 Hz and 0 to 3 volt with local stimulation, but no radicular symptoms down the legs. Thereafter radiofrequency thermocoagulation at 80 degrees celsius for 90 seconds after injecting 1 ml of PF Marcaine 0.5%(3 mls) with 20 mg of Kenalog. The left side was done in the same manner. At the end of the procedure, the skin was cleansed and bandages were applied. A copy of needle placement fluoroscopy was saved on the C-arm machine. COMPLICATIONS: No acute complications. DISPOSITION / PLANS: The patient was placed in a supine position and transferred to the recovery area in a stable condition for observation and was discharged from the recovery room after meeting discharge criteria. Home discharge instructions given to the patient by the staff. The patient will schedule a follow up in the clinic in 2-4 weeks.
[2020-06-04] MEDS ORDERED: IV FLUID CONTINUATION 1,000 ML IV ONE (07:53)
[2020-06-04 08:22] VITALS: BP 110/71; PULSE 100; RESP 18
--- NOTE | 2020-06-04 08:32 | FL ---
Fluoroscopy History: GIORGI RF LUMBAR Dr. Cunha supervised use of regina for a giorgi RF lumbar. fl time 0.21 mins
== END 2020-06-04 08:28 | disposition home or self-care (01) ==
LOC: ORPAIN 06:34
PROVIDERS: ATTEND Anesthesiology
DX: M47.816 Spondylosis without myelopathy or radiculopathy, lumbar region (principal); E66.01 Morbid (severe) obesity due to excess calories; Z88.2 Allergy status to sulfonamides; Z68.24 Body mass index [BMI] 24.0-24.9, adult
CPT/HCPCS: 81025; 64635; 64636 ×2; J2250; J3301; J3010; J2795; 99152; 99153

== ENCOUNTER 2021-07-29 15:45 | Emergency (ER) | payer OTHER ==
[2021-07-29] MEDS ORDERED: SODIUM CHLORIDE 0.9% 1,000 ML IV STA (17:02)
[2021-07-29] MEDS ORDERED: KETOROLAC 15 MG/ML 1 ML VIAL IVP STA (17:28)
[2021-07-29] MEDS ORDERED: HYDROmorphone 0.5 MG/0.5 ML SYRINGE IVP STA ×2 (17:28→18:58)
[2021-07-29 17:36] LABS: African American GFR (CKD) >90 (>60 ml/min/1.73 sqM); Anion Gap 7 mmol/L; Blood Urea Nitrogen 15 mg/dL (7-17); Calcium 9.8 mg/dL (8.4-10.2); Carbon Dioxide 25 mmol/L (22-30); Chloride 104 mmol/L (98-107); Glucose 112 mg/dL (74-99); Non-African American GFR(CKD) >90 (>60 ml/min/1.73 sqM); Potassium 3.9 mmol/L (3.5-5.1); Sodium 136 mmol/L (137-145)
[2021-07-29 17:54] LABS: Amorphous Sediment,Urine Few /hpf; Appearance,Urine Cloudy (Clear); Bilirubin,Urine Negative (Negative); Blood,Urine Moderate (Negative); Color,Urine Yellow; Glucose,Urine (UA) Negative (Negative); Ketones,Urine 1+ (Negative); Leukocyte Esterase,Urine Negative (Negative); Mucus,Urine Few /hpf; Nitrite,Urine Negative (Negative); Protein,Urine 1+ (Negative); RBC,Urine 106 /hpf (0-5); Specific Gravity,Urine 1.023 (1.001-1.035); Squamous Epithelial Cell,Urine 10 /hpf (0-4); Urobilinogen,Urine <2.0 mg/dL (<2.0); WBC,Urine 6 /hpf (0-5)
[2021-07-29 17:59] LABS: Basophils % (A) 0 %; Eosinophils # (A) 0.1 k/uL (0-0.7); Eosinophils % (A) 1 %; HCT 39.4 % (34.0-46.0); HGB 13.6 gm/dL (11.4-16.0); Lymphocytes # (A) 1.2 k/uL (1.0-4.8); Lymphocytes % (A) 12 %; MCH 30.5 pg (25.0-35.0); MCHC 34.6 g/dL (31.0-37.0); MCV 87.9 fL (80.0-100.0); Mean Platelet Volume 7.2; Monocytes # (A) 0.6 k/uL (0-1.0); Monocytes % (A) 6 %; Neutrophils # (A) 7.6 k/uL (1.3-7.7); Neutrophils % (A) 79 %; Platelet Count 256 k/uL (150-450); RBC 4.48 m/uL (3.80-5.40); WBC 9.5 k/uL (3.8-10.6)
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
[2021-07-29 19:34] VITALS: RESP 16
--- NOTE | 2021-07-29 19:48 | CT ---
EXAMINATION TYPE: CT abdomen pelvis wo con DATE OF EXAM: 07/29/2021 COMPARISON: 11/11/2014 HISTORY: left flank pain, hx of stones. CT DLP: 444.1 mGycm Automated exposure control for dose reduction was used. TECHNIQUE: Helical acquisition of images was performed from the lung bases through the pelvis. FINDINGS: Within the limits of noncontrast CT the following observations are made. LUNG BASES: No acute findings. LIVER/GB: No significant abnormality is appreciated. PANCREAS: No significant abnormality is seen. SPLEEN: No significant abnormality is seen. ADRENALS: No significant abnormality is seen. KIDNEYS/URETERS/BLADDER: On the ipsilateral left there is mild hydronephrosis and proximal hydrourete r down to an obstructing 4.5 mm calcification at the ureteropelvic junction. Left ureter otherwise un remarkable. Left kidney has three 1 mm nonobstructing renal calcifications. Urinary bladder unremarkable. Right kidney has four 1 mm nonobstructing renal calcifications. Right ureter is unremarkable. PERITONEAL CAVITY: No pneumoperitoneum. No peritoneal fluid. RETROPERITONEAL ADENOPATHY: None visualized REPRODUCTIVE ORGANS: No significant abnormality is seen PELVIC ADENOPATHY: None visualized. OSSEOUS STRUCTURES: No significant abnormality is seen. BOWEL: No significant abnormality is seen. IMPRESSION: MILD LEFT OBSTRUCTIVE UROPATHY SECONDARY TO 4.5 MM LEFT UPJ CALCIFICATION.
[2021-07-29] MEDS ORDERED: ACET/COD 300 MG/30 MG STARTER PACK 6 TAB BTL PO STA (19:56)
--- NOTE | 2021-07-29 20:00 | ED ---
Medical Decision Making - Lab Data Result diagrams: 07/29/21 17:19 07/29/21 17:19 Lab Results 07/29/21 07/29/21 07/29/21 Range/Units 17:19 17:19 17:19 WBC 9.5 (3.8-10.6) k/uL RBC 4.48 (3.80-5.40) m/uL Hgb 13.6 (11.4-16.0) gm/dL Hct 39.4 (34.0-46.0) % MCV 87.9 (80.0-100.0) fL MCH 30.5 (25.0-35.0) pg MCHC 34.6 (31.0-37.0) g/dL RDW 12.0 (11.5-15.5) % Plt Count 256 (150-450) k/uL MPV 7.2 Neutrophils % 79 % Lymphocytes % 12 % Monocytes % 6 % Eosinophils % 1 % Basophils % 0 % Neutrophils # 7.6 (1.3-7.7) k/uL Lymphocytes # 1.2 (1.0-4.8) k/uL Monocytes # 0.6 (0-1.0) k/uL Eosinophils # 0.1 (0-0.7) k/uL Basophils # 0.0 (0-0.2) k/uL Sodium (137-145) mmol/L Potassium (3.5-5.1) mmol/L Chloride (98-107) mmol/L Carbon Dioxide (22-30) mmol/L Anion Gap mmol/L BUN (7-17) mg/dL Creatinine (0.52-1.04) mg/dL Est GFR (CKD-EPI)AfAm (>60 ml/min/1.73 sqM) Est GFR (CKD-EPI)NonAf (>60 ml/min/1.73 sqM) Glucose (74-99) mg/dL Calcium (8.4-10.2) mg/dL Urine Color Yellow Urine Appearance Cloudy H (Clear) Urine pH 6.0 (5.0-8.0) Ur Specific [place] 1.023 (1.001-1.035) Urine Protein 1+ H (Negative) Urine Glucose (UA) Negative (Negative) Urine Ketones 1+ H (Negative) Urine Blood Moderate H (Negative) Urine Nitrite Negative (Negative) Urine Bilirubin Negative (Negative) Urine Urobilinogen <2.0 (<2.0) mg/dL Ur Leukocyte Esterase Negative (Negative) Urine RBC 106 H (0-5) /hpf Urine WBC 6 H (0-5) /hpf Ur Squamous Epith Cells 10 H (0-4) /hpf Amorphous Sediment Few H (None) /hpf Urine Mucus Few H (None) /hpf Urine HCG, Qual Not Detected (Not Detectd) 07/29/21 Range/Units 17:19 WBC (3.8-10.6) k/uL RBC (3.80-5.40) m/uL Hgb (11.4-16.0) gm/dL Hct (34.0-46.0) % MCV (80.0-100.0) fL MCH (25.0-35.0) pg MCHC (31.0-37.0) g/dL RDW (11.5-15.5) % Plt Count (150-450) k/uL MPV Neutrophils % % Lymphocytes % % Monocytes % % Eosinophils % % Basophils % % Neutrophils # (1.3-7.7) k/uL Lymphocytes # (1.0-4.8) k/uL Monocytes # (0-1.0) k/uL Eosinophils # (0-0.7) k/uL Basophils # (0-0.2) k/uL Sodium 136 L (137-145) mmol/L Potassium 3.9 (3.5-5.1) mmol/L Chloride 104 (98-107) mmol/L Carbon Dioxide 25 (22-30) mmol/L Anion Gap 7 mmol/L BUN 15 (7-17) mg/dL Creatinine 0.83 (0.52-1.04) mg/dL Est GFR (CKD-EPI)AfAm >90 (>60 ml/min/1.73 sqM) Est GFR (CKD-EPI)NonAf >90 (>60 ml/min/1.73 sqM) Glucose 112 H (74-99) mg/dL Calcium 9.8 (8.4-10.2) mg/dL Urine Color Urine Appearance (Clear) Urine pH (5.0-8.0) Ur Specific [place] (1.001-1.035) Urine Protein (Negative) Urine Glucose (UA) (Negative) Urine Ketones (Negative) Urine Blood (Negative) Urine Nitrite (Negative) Urine Bilirubin (Negative) Urine Urobilinogen (<2.0) mg/dL Ur Leukocyte Esterase (Negative) Urine RBC (0-5) /hpf Urine WBC (0-5) /hpf Ur Squamous Epith Cells (0-4) /hpf Amorphous Sediment (None) /hpf Urine Mucus (None) /hpf Urine HCG, Qual (Not Detectd) Disposition Clinical Impression: Kidney stone Disposition: HOME SELF-CARE Condition: Fair Instructions (If sedation given, give patient instructions): Kidney Stones (ED) Prescriptions: oxyCODONE HCL/ACETAMINOPHEN [Percocet 5-325 mg] 1 tab PO Q6HR PRN 3 Days #12 tab PRN Reason: Pain Is patient prescribed a controlled substance at d/c from ED?: Yes If prescribed controlled substance>3 days was MAPS reviewed?: Prescribed <3 Days Referrals: Jonathan Molina MD [Primary Care Provider] - 1-2 days Ludwig Moore MD [STAFF PHYSICIAN] - 1-2 days
[2021-07-29 20:18] VITALS: BP 115/77; PULSE 79; TEMP 98.4
== END 2021-07-29 20:18 | disposition home or self-care (01) ==
LOC: EC 15:45
DX: N20.2 Calculus of kidney with calculus of ureter (principal); Z87.891 Personal history of nicotine dependence; Z88.2 Allergy status to sulfonamides
CPT/HCPCS: 36415; 80048; 85025; 81001; 81025; 74176; 99284; 96374; 96376; 96375; 96361; J1885; J1170

== ENCOUNTER 2021-08-09 13:59 | Day surgery (SDC) | payer OTHER ==
[2021-08-06 11:33] VITALS: BMI 23.3
--- NOTE | 2021-08-09 14:14 | XR ---
EXAMINATION TYPE: XR KUB DATE OF EXAM: 08/09/2021 Comparison: Correlation CT 07/29/2021 Clinical History: 36 year-old female left kidney stone Findings: Nonobstructive bowel gas pattern. Mild overall stone burden. Lung bases are clear. Supine imaging camacho ited for assessment of free air. There is a 4 mm calcification in the left side of the pelvis likely progressed in the left ureter compared to 07/29/2021. Impression: 4 mm calcification in the left side of the pelvis, possible stone progressed in the ureter now at the UVJ. Clinically correlate.
[2021-08-09] MEDS ORDERED: ONDANSETRON 4 MG/2 ML VIAL ONE (14:43)
[2021-08-09] MEDS ORDERED: LACTATED RINGERS 1,000 ML IV ONE ×2 (14:53→16:39)
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
[2021-08-09] MEDS ORDERED: KETOROLAC 15 MG/ML 1 ML VIAL ONE (16:05)
[2021-08-09] MEDS ORDERED: MIDAZOLAM 2 MG/2 ML VIAL ONE (16:05)
[2021-08-09] MEDS ORDERED: PROPOFOL 10 MG/ML 20 ML VIAL IV ONE (16:05)
[2021-08-09] MEDS ORDERED: LIDOCAINE 1% INJ 10MG/ML (20 ML MDV) ONE (16:05)
[2021-08-09] MEDS ORDERED: fentaNYL (PF) 50 MCG/ML 2 ML AMP ONE (16:05)
[2021-08-09] MEDS ORDERED: IOHEXOL 350 MG/ML 50 ML in EMPTY BAG 1 BAG IRRIGATION ONE (16:30)
--- NOTE | 2021-08-09 16:52 | P.OP ---
Date of Procedure: 08/09/21 Preoperative Diagnosis: Left ureteral stone Postoperative Diagnosis: Same Procedure(s) Performed: Cystoscopy, left ureteroscopy, holmium laser lithotripsy, stone basketing, stent insertion and retrograde pyelogram Implants: 6-Kosovan by 24 cm stent left on a string in the left ureter and taped to the patient's left thigh Anesthesia: TRINY Surgeon: Rusty Silva Estimated Blood Loss (ml): 1 Pathology: other (left ureteral stone) Condition: stable Disposition: PACU Indications for Procedure: this is a 36-year-old female with history of a 4 mm left-sided proximal stone, she symptomatic from her stone. Discussed the option of left-sided ureteroscopy with holmium laser. Discussed the risk and benefit of the procedure. Discussed risk of bleeding, infection, injury to the ureter. She understood all the risk and agreed to proceed with left-sided ureteroscopy, holmium laser lithotripsy, stone basketing and stent insertion Operative Findings: Stone had migrated to the distal ureter, ureteral edema surrounding the stone Description of Procedure: Patient was brought to the operating room, general anesthesia was induced. She was prepped and draped in sterile fashion and placed in dorsal lithotomy position. Cystoscopy fitted with a 21-[place] sheath was inserted per urethra, cystoscopy was performed which showed no abnormality within the bladder. Attention was then carried to the left ureteral orifice. A semirigid ureteroscope was advanced through the urethra and up the left ureteral orifice, stone was encountered in the distal ureter. Using the holmium laser the stones were fragmented into small fragments, sizable fragments were removed using the stone basket. At this time the ureteroscope was advanced all the way up to the proximal ureter which showed no additional fragments or any stones. Retrograde pyelogram was performed through the ureteroscope which showed no filling defect along the course of the proximal ureter or within the kidney. Pullback ureteroscopy was performed which showed no injury to the ureter or any ureteral fragments. There was ureteral edema at the site of stone. At this time a sensor wire was advanced through the ureteroscope and the ureteroscope was withdrawn with the wire in place. Next a ureteral stent was passed over the wire, the proximal curl was visualized on fluoroscopy and the distal curl was visualized using the cystoscope. The stent was left on a string and taped to the patient left side. The bladder was emptied and of the case. Patient tolerated the procedure well was taken to recovery in stable condition
[2021-08-09 17:03] VITALS: TEMP 98
[2021-08-09] MEDS ORDERED: HYDROmorphone 0.5 MG/0.5 ML SYRINGE IVP ONE (17:11)
[2021-08-09 17:17] VITALS: RESP 16
[2021-08-09 18:06] VITALS: BP 111/77; PULSE 75
--- NOTE | 2021-08-10 08:58 | FL ---
Fluoroscopy History: LT RENAL CALCULUS. LT RENAL CALCULUS. [address] QUINONES[address]
== END 2021-08-09 18:23 | disposition home or self-care (01) ==
LOC: OR 13:59
PROVIDERS: ATTEND Urology
DX: N20.1 Calculus of ureter (principal); Z98.51 Tubal ligation status; Z87.828 Personal history of other (healed) physical injury and trauma; Z98.890 Other specified postprocedural states; F41.9 Anxiety disorder, unspecified; Z87.891 Personal history of nicotine dependence; Z79.899 Other long term (current) drug therapy; Z88.2 Allergy status to sulfonamides
CPT/HCPCS: 81025; 82365; 74018; 52356; C2625; C1758 ×4; C1894; C1769 ×3; J2250; J0690; J2001; J3010; J1885; J2704; Q9967; J1170

== ENCOUNTER → 2023-03-20 | Outpatient (CLI) | payer MEDICAID ==
[2023-03-20 16:25] LABS: ALT 14 U/L (8-44); AST 16 U/L (13-35); Albumin 4.2 d/dL (3.8-4.9); Albumin/Globulin Ratio 1.83 Ratio (1.60-3.17); Alkaline Phosphatase 66 U/L (41-126); BUN/Creat Ratio 16.78 Ratio (12.00-20.00); Blood Urea Nitrogen 15.1 mg/dL (9.0-27.0); Calcium 9.2 mg/dL (8.7-10.3); Carbon Dioxide 24.2 mmol/L (21.6-31.8); Chloride 107 mmol/L (96-109); Chol/HDL Ratio 2.33 Ratio; Globulin 2.3 d/dL (1.6-3.3); Glucose 91 mg/dL (70-110); LDL Cholesterol,Calculated 78.9 mg/dL (0.0-131.0); Potassium 4.6 mmol/L (3.5-5.5); Sodium 141 mmol/L (135-145); Total Bilirubin 0.3 mg/dL (0.3-1.2); Total Protein 6.5 d/dL (6.2-8.2); VLDL Calculation 10.16 mg/dL (5.00-40.00)
[2023-03-20 18:15] LABS: HGB 12.9 d/dL (12.0-15.0); MCH 28.7 pg (27.0-32.0); MCHC 32.3 d/dL (32.0-37.0); MCV 88.9 FL (80.0-97.0); NRBC Per 100 WBC 0 X 10*3/uL (0.00-0.01); Platelet Count 284 X 10*3/uL (140-440); RDW 12.5 % (11.5-14.5); WBC 4.18 X 10*3/uL (4.50-10.00)
== END | disposition home or self-care (01) ==
LOC: LABWHC1 09:26
PROVIDERS: ATTEND Family Medicine
DX: Z00.01 Encounter for general adult medical examination with abnormal findings (principal)
CPT/HCPCS: 36415; 80053; 80061; 85027